=== PATIENT | male | born 1980 | race Caucasian/White ===

== ENCOUNTER 2016-08-22 23:29 | Emergency (ER) | payer BC, MEDICAID ==
[~2016-08-22] VITALS: Ht 175.3 cm; Wt 134.8 kg
[~2016-08-22 23:29] MED LIST: ASPI-650 PO; METO25TA4 PO
[2016-08-23] MEDS ORDERED: HYDROcodone/APAP 5/325 TABLET PO PRN
[2016-08-23 00:12] LABS: HEMOGLOBIN 17.6 g/dL (13.7-18.0)
[2016-08-23 00:23] LABS: ASPARTATE AMINO TRANSFERASE 124 U/L (15-37); BLOOD UREA NITROGEN 5 mg/dL (7-18)
[2016-08-23 01:23] VITALS: BP 127/67
== END 2016-08-23 02:08 | disposition home or self-care (01) ==
LOC: ED 23:59
DX: R10.9 Unspecified abdominal pain (principal); I10 Essential (primary) hypertension; E66.01 Morbid (severe) obesity due to excess calories; F10.120 Alcohol abuse with intoxication, uncomplicated
CPT/HCPCS: 36415; 76770; 80053; 80307; 81003; 85025; 99285

== ENCOUNTER 2017-01-24 02:28 | Emergency (ER) | payer BC, OTHER ==
[~2017-01-24] VITALS: Ht 177.8 cm; Wt 135.0 kg
[2017-01-24 02:29] VITALS: BP 169/105
[2017-01-24] MEDS ORDERED: METHOCARBAMOL 750 MG TABLET PO ONE (03:00)
[2017-01-24] MEDS ORDERED: METHOCARBAMOL 750 MG TABLET ONE (03:03)
== END 2017-01-24 03:40 | disposition home or self-care (01) ==
LOC: ED 03:30
DX: S39.012A Strain of muscle, fascia and tendon of lower back, initial encounter (principal); S29.012A Strain of muscle and tendon of back wall of thorax, initial encounter; G89.11 Acute pain due to trauma; V49.9XXA Car occupant (driver) (passenger) injured in unspecified traffic accident, initial encounter; Y93.89 Activity, other specified; Y92.89 Other specified places as the place of occurrence of the external cause; Y99.8 Other external cause status
CPT/HCPCS: 99283

== ENCOUNTER 2017-05-10 20:16 | Emergency (ER) | payer BC, OTHER ==
[~2017-05-10] VITALS: Ht 177.8 cm; Wt 125.7 kg
[2017-05-10] MEDS ORDERED: SODIUM CHLORIDE FLUSH 10ML SYR IVF ONE (20:30)
[2017-05-10] MEDS ORDERED: SODIUM CHLORIDE 0.9% 1,000ML IVBOLUS ONE (20:30)
[2017-05-10 20:48] LABS: HEMATOCRIT 52.2 % (39.2-51.8); HEMOGLOBIN 17.7 g/dL (13.7-18.0); WHITE BLOOD COUNT 11.9 x10^3/uL (3.4-10)
[2017-05-10 20:58] LABS: BLOOD UREA NITROGEN 10 mg/dL (7-18)
[2017-05-10 21:03] LABS: IS PT STATUS REG ER OR PRE ER? YES
[2017-05-10] MEDS ORDERED: KETOROLAC 30 MG/1 ML ONE (21:45)
[2017-05-10] MEDS ORDERED: KETOROLAC 30 MG/1 ML IM ONE (22:00)
[2017-05-10 23:23] LABS: IS PT STATUS REG ER OR PRE ER? YES
[2017-05-10 23:36] VITALS: BP 132/82
== END 2017-05-10 23:38 | disposition home or self-care (01) ==
LOC: ED 21:09
DX: R07.89 Other chest pain (principal); I10 Essential (primary) hypertension
CPT/HCPCS: 36415; 71010; 80048; 82040; 84484; 85025; 85379; 96372; 99285; J1885

== ENCOUNTER 2018-06-17 18:38 | Emergency (ER) | payer OTHER ==
[~2018-06-17] VITALS: Ht 177.8 cm; Wt 130.8 kg
[2018-06-17 19:02] LABS: BASOPHILS # (AUTO) 0.06 x10^3/uL (0-0.1); BASOPHILS % (AUTO) 1 % (0-1); EOSINOPHILS # (AUTO) 0.14 x10^3/uL (0-0.4); EOSINOPHILS % (AUTO) 1 % (1-7); LYMPHOCYTES % (AUTO) 26 % (22-44); MD NO; MEAN CORPUSCULAR HEMOGLOBIN 33.1 pg (27.5-34.5); MEAN CORPUSCULAR HGB CONC 34.2 g/dL (33.2-36.2); MEAN CORPUSCULAR VOLUME 96.8 fL (81-97); MEAN PLATELET VOLUME 9.7 fL (7.4-10.4); MONOCYTES # (AUTO) 0.63 x10^3/uL (0.2-0.8); MONOCYTES % (AUTO) 6 % (2-9); NEUTROPHILS # (AUTO) 7.73 x10^3/uL (1.8-6.8); NEUTROPHILS % (AUTO) 67 % (42-75); PLATELET COUNT 157 x10^3/uL (130-400); RED BLOOD COUNT 5.42 x10^6/uL (4.38-5.82); RED CELL DISTRIBUTION WIDTH 12.8 % (9.4-14.8)
--- NOTE | 2018-06-17 19:05 | NUR ---
ASSUMED CARE OF PT AT THIS TIME. AMBULATORY TO ROOM WITH STEADY GAIT FROM [facility]. CLEAN CATCH UA COLLECTED AND SENT TO LAB. 38 Y/O M PRESENTS WITH "NAUSEA AND VOMITING SINCE SUNDAY, HAVE THROWN UP 5 TIMES SINCE SUNDAY, I HAVE PAIN HERE (POINTS TO EPIGRASTIC AREA)." DENIES EMESIS TODAY "JUST DRY HEAVING." RATES PAIN 4/10 IN ABD. CONT PULSE OX, BP MONITORS APPLIED. VSS. CALL LIGHT IN REACH. FALL PRECAUTIONS IN PLACE. SIDE RAILS UPX2. AWAITING EVALUATION BY ERP.
[2018-06-17 19:12] LABS: ALANINE AMINOTRANSFERASE 62 U/L (12-78); ALBUMIN 3.8 g/dL (3.4-5.0); ANION GAP 9 mmol/L (5-15); CALCIUM 9.3 mg/dL (8.5-10.1); CHLORIDE 104 mmol/L (98-107); CREATININE 0.94 mg/dL (0.7-1.3)
[2018-06-17 19:14] LABS: ALKALINE PHOSPHATASE 95 U/L (45-117); BILIRUBIN,TOTAL 0.8 mg/dL (0.2-1.0); TOTAL PROTEIN 8.7 g/dL (6.4-8.2)
--- NOTE | 2018-06-17 19:14 | NUR ---
PT IN RAD
--- NOTE | 2018-06-17 19:26 | NUR ---
PT BACK FROM RADIOLOGY. DR. RIOJAS AT BEDSIDE FOR EVALUATION.
[2018-06-17 19:30] LABS: MICROSCOPIC INDICATED
[2018-06-17 19:31] LABS: CULTURE INDICATED? YES
--- NOTE | 2018-06-17 19:53 | NUR ---
REPORT AND CARE TO BREAK PADMAJA HOLMAN AT THIS TIME.
--- NOTE | 2018-06-17 20:30 | NUR ---
REPORT AND CARE BACK FROM BREAK PADMAJA HOLMAN. TO PLACE IV FOR CT EXAM PER MD ORDER
--- NOTE | 2018-06-17 20:38 | NUR ---
waiting for IV for CT
--- NOTE | 2018-06-17 20:43 | NUR ---
PT TO CT AT THIS TIME
--- NOTE | 2018-06-17 20:50 | NUR ---
put 20g in right hand for CT sent pt back to ER with iv in place after exam.
[2018-06-17] MEDS ORDERED: OMNIPAQUE 350 MG/ML, 100ML BOTTLE ONE (20:55)
--- NOTE | 2018-06-17 20:55 | NUR ---
PT BACK FROM CT. IV PLACED IN CT, PATENT, CDI. PT RESTING COMFORTABLY. DENIES NEED TO USE RESTROOM. REPORTS "A LITTLE NAUSEATED AFTER CT BUT I'M OKAY I DON'T NEED MEDICINE, PAIN IS THE SAME 08/28." REFUSES NEED FOR PAIN MEDICATION. VSS. CALL LIGHT IN REACH.
[2018-06-17] MEDS ORDERED: ANTI-DEPRESSANT PO (21:03)
[2018-06-17] MEDS ORDERED: LISI40TA PO (21:03)
--- NOTE | 2018-06-17 21:33 | NUR ---
PT UP FOR RECHECK
--- NOTE | 2018-06-17 21:42 | NUR ---
DR. RIOJAS AT BEDSIDE FOR RECHECK, DISCUSSING TEST RESULTS AND POC WITH PT.
[2018-06-17 21:55] VITALS: BP 152/71
== END 2018-06-17 22:00 | disposition home or self-care (01) ==
LOC: ED 21:54
DX: K52.9 Noninfective gastroenteritis and colitis, unspecified (principal); I10 Essential (primary) hypertension
CPT/HCPCS: 36415; 74021; 74177; 80053; 81001; 83690; 85025; 87086; 99284; Q9967

== ENCOUNTER 2019-07-01 21:48 | Emergency (ER) | payer OTHER ==
[~2019-07-01] VITALS: Ht 175.3 cm; Wt 145.0 kg
[~2019-07-01 21:48] MED LIST changes: +ANTI-DEPRESSANT PO; +LISI40TA PO
[2019-07-01 22:06] VITALS: BP 149/73
[2019-07-01 23:36] LABS: MICROSCOPIC INDICATED
[2019-07-01] MEDS ORDERED: PROMETHAZINE 25 MG/ML, 1ML ONE (23:42)
[2019-07-01] MEDS ORDERED: MAALOX/HYOSCYAMINE/LIDOCAINE 45 ML BTL ONE (23:42)
[2019-07-01 23:44] LABS: CULTURE INDICATED? NO
[2019-07-02] MEDS ORDERED: PROMETHAZINE 25 MG/ML, 1ML IM ONE
[2019-07-02] MEDS ORDERED: MAALOX/HYOSCYAMINE/LIDOCAINE 45 ML BTL PO ONE
[2019-07-02 00:13] LABS: BASOPHILS # (AUTO) 0.07 x10^3/uL (0-0.1); BASOPHILS % (AUTO) 1 % (0-1); EOSINOPHILS # (AUTO) 0.08 x10^3/uL (0-0.4); EOSINOPHILS % (AUTO) 1 % (1-7); LYMPHOCYTES # (AUTO) 1.92 x10^3/uL (1-3.4); LYMPHOCYTES % (AUTO) 19 % (22-44); MD NO; MEAN CORPUSCULAR HGB CONC 33.5 g/dL (33.2-36.2); MEAN CORPUSCULAR VOLUME 98.7 fL (81-97); MEAN PLATELET VOLUME 10.8 fL (7.4-10.4); MONOCYTES # (AUTO) 0.68 x10^3/uL (0.2-0.8); MONOCYTES % (AUTO) 7 % (2-9); NEUTROPHILS # (AUTO) 7.66 x10^3/uL (1.8-6.8); NEUTROPHILS % (AUTO) 74 % (42-75); PLATELET COUNT 160 x10^3/uL (130-400); RED BLOOD COUNT 5.19 x10^6/uL (4.38-5.82)
[2019-07-02 00:27] LABS: ALBUMIN 3.6 g/dL (3.4-5.0); ANION GAP 6 mmol/L (5-15); CALCIUM 8.7 mg/dL (8.5-10.1); CHLORIDE 108 mmol/L (98-107)
[2019-07-02 00:30] LABS: ALANINE AMINOTRANSFERASE 90 U/L (12-78); ALKALINE PHOSPHATASE 91 U/L (45-117); BILIRUBIN,TOTAL 0.7 mg/dL (0.2-1.0); CREATININE 1.07 mg/dL (0.7-1.3); TOTAL PROTEIN 8.6 g/dL (6.4-8.2)
--- NOTE | 2019-07-02 04:06 | NUR ---
see paper charting for down time documentation
== END 2019-07-02 04:07 | disposition home or self-care (01) ==
LOC: ED 07-02 00:07
DX: K29.00 Acute gastritis without bleeding (principal); K85.00 Idiopathic acute pancreatitis without necrosis or infection; I10 Essential (primary) hypertension; F17.200 Nicotine dependence, unspecified, uncomplicated
CPT/HCPCS: 36415; 76700; 80053; 81001; 83690; 85025; 96372; 99284; J2550

== ENCOUNTER 2019-10-27 17:36 | Emergency (ER) | payer OTHER ==
[~2019-10-27] VITALS: Ht 180.3 cm; Wt 150.7 kg
--- NOTE | 2019-10-27 18:14 | NUR ---
CRAMPING ABDOMINAL PAIN AND NAUSEA SINCE SUNDAY.
--- NOTE | 2019-10-27 18:54 | NUR ---
MD FAUST AND IV ESTABLISHED WITH BLOOD DRAWN. PT ABLE TO AMBULATE TO BATHROOM, STEADY GAIT.
[2019-10-27] MEDS ORDERED: ONDANSETRON 2MG/ML, 2ML ONE (18:57)
[2019-10-27] MEDS ORDERED: HYDROmorphone 1 MG/ML, 1ML INJ ONE (18:57)
[2019-10-27 19:00] LABS: BASOPHILS # (AUTO) 0.06 x10^3/uL (0-0.1); BASOPHILS % (AUTO) 1 % (0-1); EOSINOPHILS # (AUTO) 0.13 x10^3/uL (0-0.4); EOSINOPHILS % (AUTO) 2 % (1-7); LYMPHOCYTES # (AUTO) 2.42 x10^3/uL (1-3.4); LYMPHOCYTES % (AUTO) 28 % (22-44); MD NO; MEAN CORPUSCULAR HEMOGLOBIN 33.6 pg (27.5-34.5); MEAN CORPUSCULAR VOLUME 98.7 fL (81-97); MEAN PLATELET VOLUME 10.4 fL (7.4-10.4); MONOCYTES # (AUTO) 0.59 x10^3/uL (0.2-0.8); MONOCYTES % (AUTO) 7 % (2-9); NEUTROPHILS # (AUTO) 5.47 x10^3/uL (1.8-6.8); NEUTROPHILS % (AUTO) 63 % (42-75); PLATELET COUNT 151 x10^3/uL (130-400); RED BLOOD COUNT 4.87 x10^6/uL (4.38-5.82); RED CELL DISTRIBUTION WIDTH 12.9 % (9.4-14.8)
[2019-10-27] MEDS ORDERED: ONDANSETRON 2MG/ML, 2ML IVPush ONE (19:00)
[2019-10-27] MEDS ORDERED: SODIUM CHLORIDE FLUSH 10ML SYR IVF ONE (19:00)
[2019-10-27] MEDS ORDERED: HYDROmorphone 2 MG/ML, 1ML IVPush PRN (19:00)
[2019-10-27 19:04] LABS: MICROSCOPIC INDICATED
--- NOTE | 2019-10-27 19:06 | NUR ---
BEDSIDE REPORT RECEIVED FROM PADMAJA MARTINI. PT LAYING IN BED, NO SIGNS OF DISTRESS. WILL CONTINUE TO MONITOR.
--- NOTE | 2019-10-27 19:09 | NUR ---
PT LAYING IN BED, WATCHING TV, VSS, MEDICATED TO MAR, CALL LIGHT WITHIN REACH. WILL CONITNUE TO MONITOR.
--- NOTE | 2019-10-27 19:10 | NUR ---
REPORT TO AMBROSE GIANG
[2019-10-27 19:11] LABS: ALBUMIN 3.4 g/dL (3.4-5.0); ANION GAP 5 mmol/L (5-15); CALCIUM 8.6 mg/dL (8.5-10.1); CHLORIDE 108 mmol/L (98-107)
--- NOTE | 2019-10-27 19:11 | NUR ---
REPORT RECEIVED FROM PADMAJA MARTINI.
[2019-10-27 19:14] LABS: ALANINE AMINOTRANSFERASE 74 U/L (12-78); ALKALINE PHOSPHATASE 132 U/L (45-117); BILIRUBIN,TOTAL 0.3 mg/dL (0.2-1.0); CREATININE 1.04 mg/dL (0.7-1.3); TOTAL PROTEIN 8.3 g/dL (6.4-8.2)
--- NOTE | 2019-10-27 20:08 | NUR ---
PT TO IMAGING.
[2019-10-27] MEDS ORDERED: OMNIPAQUE 350 MG/ML, 100ML BOTTLE ONE (20:14)
[2019-10-27 20:18] VITALS: BP 135/59
--- NOTE | 2019-10-27 20:18 | NUR ---
PT BACK FROM IMAGING, LAYING IN BED, WATCHING TV ON HIS PHONE, LIGHTS OFF REQUESTED. NO SIGNS OF DISTRESS, CALL LIGHT WITHIN REACH, WILL CONTINUE TO MONITOR.
--- NOTE | 2019-10-27 21:10 | NUR ---
ASSIST RN: D/C INSTRUCTIONS, MEDS & F/U APPT RV'WD WITH PT, HE VERBALIZES UNDERSTANDING. RX GIVEN X2. PT AMBULATED OUT OF ED WITHOUT DIFFICULTY, STATES A FRIEND WILL TAKE HIM HOME.
== END 2019-10-27 21:17 | disposition home or self-care (01) ==
LOC: ED 19:54
DX: R10.84 Generalized abdominal pain (principal); R11.10 Vomiting, unspecified; I10 Essential (primary) hypertension; Z90.89 Acquired absence of other organs
CPT/HCPCS: 36415; 74177; 80053; 81001; 83605; 83690; 85025; 87086; 96374; 96375; 99285; J1170; J2405; Q9967

== ENCOUNTER 2021-01-24 09:10 | Emergency (ER) | payer OTHER ==
[~2021-01-24] VITALS: Ht 180.3 cm; Wt 139.0 kg
[~2021-01-24 09:10] MED LIST changes: -ASPI-650 PO; +ASPI325T20 PO; -LISI40TA PO; +LISI40TA9 PO
[2021-01-24] MEDS ORDERED: ONDANSETRON ODT 4 MG PO ONE (10:00)
[2021-01-24] MEDS ORDERED: ONDANSETRON ODT 4 MG ONE (10:10)
[2021-01-24 10:18] LABS: BASOPHILS % (AUTO) 0 % (0-1); EOSINOPHILS % (AUTO) 1 % (1-7); LYMPHOCYTES % (AUTO) 18 % (22-44); MEAN CORPUSCULAR HEMOGLOBIN 33.5 pg (27.5-34.5); MEAN CORPUSCULAR HGB CONC 34.9 g/dL (33.2-36.2); MEAN PLATELET VOLUME 10.1 fL (7.4-10.4); MONOCYTES % (AUTO) 10 % (2-9); NEUTROPHILS % (AUTO) 71 % (42-75); PLATELET COUNT 128 x10^3/uL (130-400); RED BLOOD COUNT 5.01 x10^6/uL (4.38-5.82); RED CELL DISTRIBUTION WIDTH 12.8 % (9.4-14.8)
[2021-01-24 10:30] LABS: ALANINE AMINOTRANSFERASE 59 U/L (12-78); ALBUMIN 3.2 g/dL (3.4-5.0); ANION GAP 7 mmol/L (5-15); CALCIUM 7.9 mg/dL (8.5-10.1); CHLORIDE 106 mmol/L (98-107); CREATININE 0.79 mg/dL (0.7-1.3)
[2021-01-24 10:33] LABS: ALKALINE PHOSPHATASE 77 U/L (45-117); BILIRUBIN,TOTAL 1.1 mg/dL (0.2-1.0); TOTAL PROTEIN 7.7 g/dL (6.4-8.2)
[2021-01-24 11:43] VITALS: BP 145/74
== END 2021-01-24 11:47 | disposition home or self-care (01) ==
LOC: ED 09:41
DX: A08.4 Viral intestinal infection, unspecified (principal); R11.2 Nausea with vomiting, unspecified
CPT/HCPCS: 36415; 80053; 85025; 99283; Q0162